=== PATIENT | female | born 1980 | race African-American/Black ===

== ENCOUNTER 2016-12-16 14:26 | Emergency (ER) | payer MEDICAID, OTHER ==
[~2016-12-16] VITALS: Ht 162.6 cm; Wt 76.0 kg
[~2016-12-16 14:26] MED LIST: KEPP500; LEVA0.6320; RISO02
[2016-12-16] MEDS ORDERED: ACETAMINOPHEN 325MG TABLET PO STA (22:45)
[2016-12-16] MEDS ORDERED: ONDANSETRON 4MG ODT PO STA (22:45)
[2016-12-16 23:08] LABS: BASOPHILS % 0.5 % (0.0-2.0); EOSINOPHILS % 1.1 % (0.0-5.0); HEMATOCRIT. 38.7 % (36.0-48.0); LYMPHOCYTES % 38.5 % (20.0-50.0); MEAN CORPUSCULAR HEMOGLOBIN 30.4 pg (28.0-32.0); MEAN CORPUSCULAR VOLUME 90.7 fL (81.0-99.0); MEAN PLATELET VOLUME 9.7 fl (7.4-10.4); MONOCYTES % 8.5 % (2.0-8.0); NEUTROPHILS % 51.4 % (40.0-76.0); PLATELET 220 x1000/uL (130-400); RED BLOOD CELL COUNT 4.27 mill/uL (4.2-5.4); RED CELL DISTRIBUTION WIDTH 13.4 % (11.6-14.6)
[2016-12-16 23:14] LABS: CHLORIDE 106 mEq/L (98-107)
[2016-12-16 23:18] LABS: HCG SCREEN NEGATIVE
[2016-12-16 23:22] LABS: CARBON DIOXIDE 28 mEq/L (21-32)
[2016-12-16] MEDS ORDERED: KETOROLAC 30MG/ML VIAL IM ONE (23:45)
[2016-12-16 23:54] LABS: CLARITY URINE CLOUDY (CLEAR); COLOR URINE YELLOW (YELLOW); GLUCOSE URINE NEGATIVE (NEGATIVE); KETONES URINE NEGATIVE (NEGATIVE); LEUKOCYTE ESTERASE URINE 1+ (NEGATIVE); NITRITE URINE NEGATIVE (NEGATIVE); OCCULT BLOOD URINE NEGATIVE (NEGATIVE); PH URINE 5.5 (4.5-8.0); PROTEIN URINE NEGATIVE (NEGATIVE); SPECIFIC GRAVITY URINE 1.018 (1.005-1.030); UROBILINOGEN URINE 0.2 E.U./dL (0.2-1.0)
[2016-12-17 00:15] LABS: *AMPHETAMINES SCREEN URINE NEGATIVE (NEGATIVE); *BARBITURATES SCREEN URINE NEGATIVE (NEGATIVE); *BENZODIAZEPINES SCREEN URINE NEGATIVE (NEGATIVE); *COCAINE SCREEN URINE NEGATIVE (NEGATIVE); METHADONE URINE SCREEN NEGATIVE (NEGATIVE); OPIATES URINE SCREEN NEGATIVE (NEGATIVE); PHENCYCLIDINE URINE SCREEN NEGATIVE (NEGATIVE)
[2016-12-17 00:20] LABS: CANNABINOID URINE SCREEN PRESUMTIVE POSITIVE (NEGATIVE)
[2016-12-17] MEDS ORDERED: CEFTRIAXONE SODIUM 250 MG/VIAL IM ONE (01:15)
[2016-12-17] MEDS ORDERED: AZITHROMYCIN 500 MG TABLET PO ONE (01:15)
[2016-12-17] MEDS ORDERED: LIDOCAINE HCL 1% 20ML VIAL (Pyxis) INJ MC ONE (01:30)
[2016-12-17] MEDS ORDERED: IBUPROFEN 600MG TABLET PO ONE (01:30)
[2016-12-17 02:23] VITALS: BP 135/76
== END 2016-12-17 02:45 | disposition home or self-care (01) ==
LOC: ER 15:55
DX: B37.0 Candidal stomatitis (principal); N83.202 Unspecified ovarian cyst, left side; R10.30 Lower abdominal pain, unspecified; R03.0 Elevated blood-pressure reading, without diagnosis of hypertension; Z98.51 Tubal ligation status; G40.909 Epilepsy, unspecified, not intractable, without status epilepticus; E11.9 Type 2 diabetes mellitus without complications; F12.90 Cannabis use, unspecified, uncomplicated
CPT/HCPCS: 36415; 76830; 76856; 80053; 80305; 81001; 83690; 84703; 85025; 96372; 99285; J0696; J1885; J3490; J7030; Q0162; Z7610